=== PATIENT | male | born 1960 ===

== ENCOUNTER 2017-07-13 11:04 | Inpatient (IN) | payer OTHER ==
[2017-07-13 11:18] VITALS: BMI 26.7
--- NOTE | 2017-07-13 11:19 | ED PDOC ---
Arrival/HPI - General Chief Complaint: Altered Mental Status Time Seen by Provider: 07/13/17 11:16 Historian: EMS, Other (co-worker) - History of Present Illness Narrative History of Present Illness (Text): 07/13/17 11:19 Pt p/w + sudden onset of altered mental status as per co-worker; pt was at work around 7 and appeared to be at his baseline mental status; pt was noted to be complaining while in the bathroom around 8-9am of severe dizziness/ lightheadedness and general unwell feeling/malaise; pt became verbal aphasic ~ 9 -915am; co-worker contacted EMS/911 and pt was brought to ED around 1115am; pt is currently with severe speech impediment; severe weakness to right arm/leg; pt is not responding appropriately; pt is not at his baseline mental status NO fall/trauma is noted co-worker is at bedside pt is here for further eval pt's without other complaints. PMD: Dr Freeman + Diabetes/HTN/on asa daily Time/Duration: 1-3 hours Symptom Onset: Sudden Symptom Course: Worsening Severity Level: Severe Activities at Onset: Other (was at work) Context: Work Past Medical History - Provider Review Nursing Documentation Reviewed: Yes - Travel History Have you recently traveled outside [place] w/in the past 3 mons?: No - Past History Past History: No Previous - Infectious Disease Hx of Infectious Diseases: None - Tetanus Immunization Tetanus Immunization: Unknown Family/Social History - Physician Review Nursing Documentation Reviewed: Yes Family/Social History: Diabetes Smoking Status: Unknown If Ever Smoked Hx Alcohol Use: No (unknown) Hx Substance Use: No (unknown) Hx Substance Use Treatment: No (unknown) Allergies/Home Meds Allergies/Adverse Reactions: Allergies Unobtainable Allergy (Verified 07/13/17 11:14) Home Medications: Home Meds Medication Instructions Recorded Confirmed Aspirin [[place] Aspirin] 81 mg PO DAILY 07/13/17 07/13/17 Ca/D3/Mag Ox/Zinc/[place] Sewer/Jim/Bor 1 each PO DAILY 07/13/17 07/13/17 [Calcium 600+D3 Plus Caplet] Glipizide [Glipizide ER] 10 mg PO DAILY 07/13/17 07/13/17 Lisinopril/Hydrochlorothiazide 1 each PO DAILY 07/13/17 07/13/17 [Lisinopril-Hctz 20-12.5 mg Tab] Metformin HCl [Glumetza] 1,000 mg PO BID 07/13/17 07/13/17 Review of Systems - Review of Systems Systems not reviewed;Unavailable: Altered Mental Status (and language barrier) Constitutional: Normal Eyes: Other (unable to obtain) ENT: Normal Respiratory: Normal Cardiovascular: Normal Gastrointestinal: Normal Genitourinary Male: Normal Musculoskeletal: Normal Skin: Normal Neurological: Dizziness, Speech Changes, Facial Droop, Disequilibrium Endocrine: Normal Hemo/Lymphatic: Normal Psychiatric: Normal Physical Exam - Physical Exam Physical Exam Limitations: Altered Mental Status Vital Signs Reviewed: Yes Vital Signs Temp Pulse Resp BP Pulse Ox 07/13/17 13:25 98.7 F 87 16 141/86 97 07/13/17 12:19 75 194/120 H 07/13/17 11:45 83 194/120 H 07/13/17 11:32 78 20 194/120 H 96 07/13/17 11:31 98.6 F 75 16 197/117 H 96 Temperature: Afebrile Blood Pressure: Hypertensive Pulse: Regular Respiratory Rate: Normal Appearance: Positive for: Uncomfortable, Other (arousable to pain stimuli and at times to voice, GCS = 6, uncomfortable, NAD, resting in bed) Pain Distress: None Mental Status: Positive for: other (severely altered) - Systems Exam Head: Present: Atraumatic, Normocephalic Pupils: Present: PERRL, Other (no photophobia, sclera anicteric, slightly sluggish pupils) Extroacular Muscles: Present: EOMI. No: Gaze Palsy Conjunctiva: Present: Normal Ears: Present: Normal Mouth: Present: Other (moist oral mucosa, dentures, tongue is midline, no drooling/stridor) Pharnyx: Present: Normal Nose (External): Present: Atraumatic Nose (Internal): Present: Normal Inspection Neck: Present: Normal Range of Motion, Trachea Midline, Other (no step off, no gross deformities noted). No: Meningeal Signs, MIDLINE TENDERNESS Respiratory/Chest: Present: Clear to Auscultation, Good Air Exchange, Other ( CTA b/l, no w/r/r, no accessory muscle use noted, no tachypenia) Cardiovascular: Present: Regular Rate and Rhythm, Normal S1, S2. No: Murmurs Abdomen: Present: Normal Bowel Sounds, Other (well nourished male, no focal tenderness, no masses/rebound/guarding/rigidity, no gallagher's sign, no mcburney' s point tenderness) Back: Present: Normal Inspection. No: CVA Tenderness, Midline Tenderness Upper Extremity: Present: Normal Inspection, Normal ROM, Neurovascularly Intact , Other (+ rigth arm severe weakness, no strength noted, no purposeful movement noted) Lower Extremity: Present: Other (no movement/strength noted to right lower ext; no gross deformities, movement noted to left lower ext, strength 5/5 grossly intact, pulses +2/2 b/l) Neurological: Present: Other (GCS = 6-8; NIH stroke scale ~ 24-26; right facial droop, slurr speech) Skin: Present: Warm, Dry, Normal Color, Other (cap refill < 1sec, no ulcerations , no petechiae) Medical Decision Making ED Course and Treatment: 07/13/17 11:24 Impression: AMS, concern for stroke i have consider all the differential diagnosis regarding pt's chief medical complaints/clinical findings, including but are not limited to: AMS; concern for stroke A/P: AMS, concern for stroke - labs - iv - xray - ct - observe - supportive care 07/13/17 11:15 Code stroke was activated at 11:16 Dr Goins was contacted ~ 11:24, asked about the need for CTA, Dr Goins states no at the moment Awaiting CT head 07/13/17 11:35 Dr Goins evaluated patient and states due to pt's CT findings, pt is not a tPA candidate, recommend control BP and ? FFP due to pt's ASA; and to admit patient to ICU; would like CTA neck/head paging Intensivists 07/13/17 11:44 unable to reach family, will have 2 doctor signature, to consent for transfusion /FFB spoke to Dr Fry, who states Dr Freeman's patient will be seen/admitted by Dr Grace, will page Dr Grace 07/13/17 11:54 Case discussed with ICU attending supervisor epoxy fabrication Dr. Day, who is aware of and in agreement with ED treatment. Requests supervisor epoxy fabrication neurologist and vascular specialist Dr. Mariano for consult. Dr. Day is ambivalent towards ffp transfusion since the benefits and risks are the same, would like Platelet transfusion for now. 07/13/17 11:50 due to pt's worsening mental status, concern for airway protection will recommend emergent intubation to protect patient's airway pt is intubated ~ 12:15pm; i spoke to pt's son, Pratik Luevano on the phone who is coming to see patient 12:35pm - pt's spouse and Pratik Luevano (pt's son) are at bedside, made aware of pt's medical condition; agrees with admission family stated patient had a stroke some times ago in [place] but without any permanent/residual damages Dr Garcia spoke to neurosurg/dr Davis and he will see patient Dr Goins is with Dr Mariano, they are aware 1245 - I spoke to Dr Grace, made aware, agrees with ED mgt/txt/dx 07/13/17 1250 pt is currently stable vital signs indicates permissive HTN at ~ 170s sbp, pt is on cardene gtt as well as propofol for sedation pt's head is elevated ~ 30degrees pt is currently intubated, and appearing comfortable, not in distress family are at bedside repeate xray was performed pt is awaiting bed placement to the ICU and will obtain CTA head/neck on the way to the ICU Re-evaluation Time: 11:27 Reassessment Condition: Unchanged - Critical Care Critical Care Minutes: 45 minutes Critical Care Time: Excluding Proc Time Narrative Critical Care (Text): 07/13/17 12:38 critical care time: 45min, excluding procedure time, excluding time teaching residents/students/mid-level providers; including initial eval/diagnosis, diagnostic interpretation, re-eval, consultations, final disposition - Lab Interpretations Lab Results: 07/13/17 11:27 07/13/17 11:27 Lab Results 07/13/17 11:27: Sodium 138, Potassium 3.9, Chloride 98, Carbon Dioxide 27, Anion Gap 16, BUN 12, Creatinine 0.6 L, Est GFR ( Amer) > 60, Est GFR ( Non-Af Amer) > 60, Random Glucose 246 H, Calcium 10.3, Total Bilirubin 0.3, AST 25, ALT 33, Alkaline Phosphatase 91, Troponin I < 0.01, Total Protein 7.7, Albumin 4.4, Globulin 3.3, Albumin/Globulin Ratio 1.4, Triglycerides 160, Cholesterol 190, LDL Cholesterol Direct 106, HDL Cholesterol 49 07/13/17 11:27: PT 11.6, INR 1.01, APTT 26.3 07/13/17 11:27: WBC 6.8, RBC 5.27, Hgb 13.7 L, Hct 40.1 L, MCV 76.1 L, MCH 26.0 , MCHC 34.2, RDW 13.1, Plt Count 250, MPV 9.5, Gran % 58.1, Lymph % (Auto) 33.6 , [place] % (Auto) 6.7 H, Eos % (Auto) 1.3 L, Baso % (Auto) 0.3, Gran # 3.92, Lymph # (Auto) 2.3, [place] # (Auto) 0.5, Eos # (Auto) 0.1, Baso # (Auto) 0.02 07/13/17 11:09: POC Glucose (mg/dL) 218 H I have reviewed the lab results: Yes Interpretation: Abnormal lab values (elevated GLUC) - RAD Interpretation Narrative RAD Interpretations (Text): 07/13/17 14:03 HISTORY: Code Stroke COMPARISON: No prior. FINDINGS: LUNGS: There is linear atelectasis or scarring at the right lung base. PLEURA: No significant pleural effusion identified, no pneumothorax apparent. CARDIOVASCULAR: The heart is normal in size. There is mild aortic tortuosity OSSEOUS STRUCTURES: No significant abnormalities. VISUALIZED UPPER ABDOMEN: Normal. OTHER FINDINGS: None. IMPRESSION: No active disease. PROCEDURE: CT HEAD WITHOUT CONTRAST. HISTORY: code stroke COMPARISON: None available. TECHNIQUE: Axial computed tomography images were obtained through the head/brain without intravenous contrast. Radiation dose: Total exam DLP = 912.31 mGy-cm. This CT exam was performed using one or more of the following dose reduction techniques: Automated exposure control, adjustment of the mA and/or kV according to patient size, and/or use of iterative reconstruction technique. FINDINGS: HEMORRHAGE: There is an intraparenchymal hemorrhage identified at the left cerebral peduncle extending inferiorly into the left side of the ladan posteriorly. It measures 1.3 x 1.5 x 4.4 cm (transverse by anteroposterior by superoinferior dimensions), with a small, tubular component seen posterior to it at the midline upper ladan. There is no significant mass effect exerted at this time and trace local edema is seen at the inferior left thalamus/posterior limb internal capsule. The remainder the brain is unremarkable with good corticomedullary differentiation appreciated throughout the cerebrum and cerebellum. No cortical edema is appreciated with a small chronic lacune suggests at the left frontal subcortical white matter superiorly. There is no suspicious extra-axial fluid collection identified. BRAIN: Please see above. VENTRICLES: Unremarkable. No hydrocephalus. CALVARIUM: Unremarkable. PARANASAL SINUSES: Unremarkable as visualized. No significant inflammatory changes. MASTOID AIR CELLS: Unremarkable as visualized. No inflammatory changes. OTHER FINDINGS: None. IMPRESSION: Intraparenchymal hemorrhage appears acute subacute at the left cerebral peduncle extending into the inferior ladan posteriorly with trace local edema is seen at the left thalamus/ internal capsule posterior limb. No significant mass effect is encountered at this time. Remainder the examination is unremarkable. Follow-up cross-sectional brain imaging advised. Findings discussed with Dr. Bridges 07/13/2017 11:30 a.m.. PROCEDURE: CT Angiography of the Brain. HISTORY: code stroke, noted bleed COMPARISON: None available. TECHNIQUE: CT angiography of the intracranial and cervical arteries was performed. Coronal and sagittal maximum intensity projection reformatted images were generated. Contrast Dose: Radiation dose:Total exam DLP = 515.13 mGy-cm. This CT exam was performed using one or more of the following dose reduction techniques: Automated exposure control, adjustment of the mA and/or kV according to patient size, and/or use of iterative reconstruction technique. FINDINGS: INTERNAL CEREBRAL ARTERIES: Unremarkable. The skull base, petrous, cavernous and supraclinoid segments are bilaterally widely patent. ANTERIOR CEREBRAL ARTERIES: Unremarkable. A1 and A2 segments are widely patent. Smaller distal branches unremarkable, as visualized. MIDDLE CEREBRAL ARTERIES: Unremarkable. M1 and M2 segments are widely patent. Perisylvian branches grossly symmetric. POSTERIOR CIRCULATION: Basilar Artery: Unremarkable. Distal Vertebral Arteries: Unremarkable. Posterior Cerebral Arteries: Unremarkable. Posterior Inferior Cerebellar Arteries: Unremarkable. NECK CTA: Common Carotid arteries: The bilateral common carotid appear widely patent from their origins to their bifurcations with no significant stenosis appreciated. No evidence to suggest common carotid artery dissection. Internal Carotid arteries: No significant stenosis is appreciated throughout the cervical internal carotid artery segments bilaterally and there is no evidence of dissection either. The distal left ICA appears rather ectatic proximal to entry through the skullbase. External Carotid arteries: Appear unremarkable bilaterally. Vertebral arteries: The bilateral vertebral arteries appear normal in caliber from their origins to their junction with the basilar artery. No significant stenosis or definite pattern of dissection. ANEURYSM/ VASCULAR MALFORMATIONS: None. OTHER FINDINGS: Incidental fibrotic changes versus linear atelectasis left pulmonary apex. Endotracheal and nasogastric tubes are identified at the thoracic inlet in their respective tracheal and esophageal locations. Left-sided pontine and cerebral peduncle intraparenchymal hemorrhage again evident extending into the left thalamus/internal capsule. IMPRESSION: Unremarkable CT Angiography of the Brain and Neck, including at the level of the ladan and left cerebral peduncle. HISTORY: intubated/NGT COMPARISON: Portable chest 07/13/2017 FINDINGS: LUNGS: Patient is now intubated with an endotracheal tube identified terminating just over 6 cm from the wyatt. Nasogastric tube is identified placed with the side hole at the level of the esophagogastric junction. Advancement of the NG tube further into abdomen is advised so the the side hole clears the EG junction. Limited right infrahilar and medial basilar patchy atelectasis is favored over infiltrate at this time. PLEURA: No significant pleural effusion identified, no pneumothorax apparent. CARDIOVASCULAR: Normal. OSSEOUS STRUCTURES: No significant abnormalities. VISUALIZED UPPER ABDOMEN: Normal. OTHER FINDINGS: None. IMPRESSION: Interval intubation and nasogastric tube deployment as discussed above. Advancement of the NG tube further into the stomach is advised follow-up by confirmation radiography. Limited patchy atelectasis is favored over infiltrate at the right infrahilar and medial left basilar regions. Radiology Orders: 07/13/17 11:15 HEAD W/O (CODE STROKE) [CT] Stat 07/13/17 11:21 CHEST PORTABLE [RAD] Stat 07/13/17 11:33 CTA HEAD/NECK CODE STROKE [CT] Stat 07/14/17 06:00 CHEST PORTABLE [RAD] DAILY 07/15/17 06:00 CHEST PORTABLE [RAD] DAILY 07/16/17 06:00 CHEST PORTABLE [RAD] DAILY 07/17/17 06:00 CHEST PORTABLE [RAD] DAILY [employer] Operations Manager: Radiologist - EKG Interpretation EKG Interpretation (Text): 07/13/17 14:05 NSR at 75 bpm, normal axis, no ectopy, inverted T in leads III, poor R wave progression, no st changes, BORDERLINE EKG; no old ekg to compare with Interpreted by ED Physician: Yes Type: 12 lead EKG Comparison: No previous EKG avail. - Medication Orders Current Medication Orders: Sodium Chloride (Sodium Chloride 0.9%) 1,000 mls @ 100 mls/hr IV .Q10H RONNIE Last Admin: 07/13/17 12:21 Dose: 100 mls/hr eMAR Start Stop Document 07/13/17 12:21 SRE (Rec: 07/13/17 12:21 SRE [id number]) Intravenous Solution Start Date 07/13/17 Start Time 11:30 Nicardipine HCl (Cardene Iv Premix) 20 mg in 200 mls @ 50 mls/hr IV .Q4H PRN; Protocol; 5 MG/HR PRN Reason: TITRATE PER MD ORDER Last Admin: 07/13/17 11:45 Dose: 50 mls/hr eMAR Start Stop Document 07/13/17 11:45 SRE (Rec: 07/13/17 12:29 SRE [id number]) Intravenous Solution Start Date 07/13/17 Start Time 11:45 MAR Pulse and Blood Pressure Document 07/13/17 11:45 SRE (Rec: 07/13/17 12:29 SRE [id number]) Pulse Pulse Rate (60-90) 83 Blood Pressure Blood Pressure (100/60-150/90) 194/120 Propofol (Diprivan) 500 mg in 50 mls @ 2.394 mls/hr IV .[id number] PRN; Protocol; 5 MCG/KG/MIN PRN Reason: TITRATE PER MD ORDER Insulin Human Regular (Humulin R High) 0 units SC ACHS RONNIE PRN Reason: Protocol Pantoprazole Sodium (Protonix Inj) 40 mg IVP DAILY RONNIE Discontinued Medications Etomidate (Amidate) 20 mg IV STAT STA Stop: 07/13/17 12:22 Sodium Chloride (Hypertonic Saline 3%) 500 mls @ 500 mls/hr IV .Q1H RONNIE Stop: 07/13/17 12:38 Last Admin: 07/13/17 13:07 Dose: 500 mls/hr eMAR Start Stop Document 07/13/17 13:07 SRE (Rec: 07/13/17 13:08 SRE [id number]) Intravenous Solution Start Date 07/13/17 Start Time 13:05 End Date 07/13/17 End time 14:05 Total Infusion Time 60 Labetalol HCl (Trandate) 20 mg IV STAT STA Stop: 07/13/17 11:30 Last Admin: 07/13/17 12:19 Dose: 20 mg eMAR Start Stop Document 07/13/17 12:19 SRE (Rec: 07/13/17 12:20 SRE [id number]) Intravenous Solution Start Date 07/13/17 Start Time 11:30 End Date 07/13/17 End time 11:31 Total Infusion Time 1 [facility] Pulse and Blood Pressure Document 07/13/17 12:19 SRE (Rec: 07/13/17 12:20 SRE [id number]) Pulse Pulse Rate (60-90) 75 Blood Pressure Blood Pressure (100/60-150/90) 194/120 Midazolam HCl (Versed Inj) 2 mg IVP STAT STA Stop: 07/13/17 12:25 Propofol (Diprivan) 50 mg IVP ONCE ONE Stop: 07/13/17 12:25 Last Admin: 07/13/17 12:25 Dose: 50 mg IVP Administration Document 07/13/17 12:25 SRE (Rec: 07/13/17 13:21 SRE [id number]) Charges for Administration # of IVP Administrations 1 Succinylcholine Chloride (Quelicin) 80 mg IV STAT STA Stop: 07/13/17 12:23 - Procedure PROCEDURE NOTE (Text): PROCEDURE: INTUBATION Performed by the emergency provider Time: 12:10 Timeout: A timeout to verify the correct patient, procedure, and site was performed. Indication: altered mental status/poor airway control Pre-oxygenation: [id number]; pre-intubation saturation ~ 100% Medications: See MAR for details. (Etomadate/succhycholine) ETT Size: 8.0" attempt x 2, first attempt with MAC 4 unable to pass the tube, noted < 10 sec of desaturation as switch over to Glidescope is performed, was able to secure tube and visualize passage of the ETT thru the vocal cords, + condensation to the ETT noted, + Capnometer changes noted. Confirmation: Cords directly visualized as tube passed, good bilateral breath sounds, positive CO2 detector color change, tube fogging, adequate chest rise, improving pulse oximetry reading, improved skin color, and absence of gastric sounds. ETT Secured: The cuff was inflated and the tube was secured appropriately at a distance of 22-23cm at the lip. ETT is secured Post-Procedure: There were no immediate complications. CXR Confirmation: Yes 07/13/17 12:15 NGT placement performed by the Emergency provider NGT placement is performed, tube is placed orally, obtained gastric content, no bleeding/complications noted; pt tolerated the procedure well; will secure the NGT NIHSS Stroke Scale 3 - Date/Time Evaluation Performed Date Performed: 07/13/17 Time Performed: 11:15 When Was NIHSS Performed: Code Stroke - How Severe is the Stroke Level of Consciousness: 1=Drowsy LOC to Questions: 2=Neither correct LOC to commands: 2=Neither correct Best Gaze: 1=Partial gaze palsy Visual: 0=No visual loss Facial: 2=Partial (lower face paralysis) Motor Arm - Left: 1=Drift noted before 10 sec Motor Arm - Right: 4=No movement Motor Leg - Left: 1=Drift before 5 sec Motor Leg - Right: 4=No movement Limb Ataxia: 2=Present both Sensory: 1=Mild to moderate loss Best Language: 2=Severe aphasia Dysarthia: 2=Severe, near unintelligible or worse Extinction & Inattention (Neglect): 1=Partial neglect (mild carol-attention) Score: 26 Disposition/Present on Arrival - Present on Arrival Any Indicators Present on Arrival: No History of DVT/PE: No History of Uncontrolled Diabetes: Yes Urinary Catheter: No History of Decub. Ulcer: No History Surgical Site Infection Following: None - Disposition Have Diagnosis and Disposition been Completed?: Yes Diagnosis: Intracranial bleed, Hypertensive emergency, CVA (cerebrovascular accident due to intracerebral hemorrhage), Uncontrolled diabetes mellitus Disposition: HOSPITALIZED Disposition Time: 12:05 Patient Plan: ICU Patient Problems: Current Active Problems Problem Status Onset CVA (cerebrovascular accident due to intracerebral hemorrhage) Acute Hypertensive emergency Acute Intracranial bleed Acute Uncontrolled diabetes mellitus Acute Condition: GUARDED
[2017-07-13] MEDS ORDERED: Labetalol 5 mg/ml Inj 20ML IV STA (11:29)
[2017-07-13] MEDS ORDERED: Sodium Chloride 0.9% 1,000 ML IV SCH (11:30)
[2017-07-13 11:35] LABS: BASO # 0.02 K/mm3 (0.0-2.0); BASO % 0.3 % (0.0-3.0); EOS # 0.1 (0.0-0.7); EOS % 1.3 % (1.5-5.0); GRAN # 3.92 (1.4-6.5); GRAN % 58.1 % (50.0-68.0); HEMOGLOBIN 13.7 g/dL (14.0-18.0); LYMPH # 2.3 (1.2-3.4); LYMPH % 33.6 % (22.0-35.0); MEAN CELL VOLUME 76.1 fl (80.0-105.0); MEAN CORPUSCULAR HGB CONC 34.2 g/dl (31.0-37.0); MEAN PLATELET VOLUME 9.5 fl (7.0-11.0); MONO # 0.5 (0.1-0.6); MONO % 6.7 % (1.0-6.0); RBC 5.27 10^6/uL (3.5-6.1); RED CELL DISTRIBUTION WIDTH 13.1 % (11.5-14.5); WHITE BLOOD COUNT 6.8 10^3/ul (4.5-11.0)
--- NOTE | 2017-07-13 11:38 | CT ---
PROCEDURE: CT HEAD WITHOUT CONTRAST. HISTORY: code stroke COMPARISON: None available. TECHNIQUE: Axial computed tomography images were obtained through the head/brain without intravenous contrast. Radiation dose: Total exam DLP = 912.31 mGy-cm. This CT exam was performed using one or more of the following dose reduction techniques: Automated exposure control, adjustment of the mA and/or kV according to patient size, and/or use of iterative reconstruction technique. FINDINGS: HEMORRHAGE: There is an intraparenchymal hemorrhage identified at the left cerebral peduncle extending inferiorly into the left side of the ladan posteriorly. It measures 1.3 x 1.5 x 4.4 cm (transverse by anteroposterior by superoinferior dimensions), with a small, tubular component seen posterior to it at the midline upper ladan. There is no significant mass effect exerted at this time and trace local edema is seen at the inferior left thalamus/posterior limb internal capsule. The remainder the brain is unremarkable with good corticomedullary differentiation appreciated throughout the cerebrum and cerebellum. No cortical edema is appreciated with a small chronic lacune suggests at the left frontal subcortical white matter superiorly. There is no suspicious extra-axial fluid collection identified. BRAIN: Please see above. VENTRICLES: Unremarkable. No hydrocephalus. CALVARIUM: Unremarkable. PARANASAL SINUSES: Unremarkable as visualized. No significant inflammatory changes. MASTOID AIR CELLS: Unremarkable as visualized. No inflammatory changes. OTHER FINDINGS: None. IMPRESSION: Intraparenchymal hemorrhage appears acute subacute at the left cerebral peduncle extending into the inferior ladan posteriorly with trace local edema is seen at the left thalamus/ internal capsule posterior limb. No significant mass effect is encountered at this time. Remainder the examination is unremarkable. Follow-up cross-sectional brain imaging advised. Findings discussed with Dr. Bridges 07/13/2017 11:30 a.m..
[2017-07-13] MEDS ORDERED: Nicardipine 20 MG/200 ML 20 MG/200 ML BAG IV PRN (11:42)
[2017-07-13 11:43] LABS: ALB/GLOB RATIO 1.4 (1.1-1.8); ALBUMIN 4.4 g/dL (3.0-4.8); ALT/SGPT 33 U/L (7-56); AST/SGOT 25 U/L (17-59); BLOOD UREA NITROGEN 12 mg/dL (7-21); CALCIUM 10.3 mg/dL (8.4-10.5); GFR AFRICAN-AMERICAN > 60; GFR NON-AFRICAN AMERICAN > 60; HDL CHOLESTEROL 49 mg/dL (29-60); INR 1.01 (0.93-1.08); PARTIAL THROMBOPLASTIN TIME 26.3 Seconds (25.1-36.5); PROTHROMBIN TIME 11.6 SECONDS (9.4-12.5)
[2017-07-13 11:54] LABS: LDL CHOLESTEROL 106 mg/dL (0-129)
[2017-07-13 11:57] LABS: TROPONIN I < 0.01 ng/mL
[2017-07-13] MEDS ORDERED: Etomidate 20 mg/10ml Inj IV ONE (11:58)
[2017-07-13] MEDS ORDERED: Succinylcholine 200 mg/10 ml Inj IV ONE (12:04)
[2017-07-13] MEDS ORDERED: Propofol 10 mg/ml 500 MG/50 ML VIAL IV PRN (12:05)
[2017-07-13] MEDS ORDERED: Midazolam 2 MG/2 ML VIAL ONE (12:10)
[2017-07-13] MEDS ORDERED: Propofol 10 mg/ml 1,000 MG/100 ML VIAL ONE ×2 (12:13→18:15)
--- NOTE | 2017-07-13 12:20 | RAD ---
HISTORY: Code Stroke COMPARISON: No prior. FINDINGS: LUNGS: There is linear atelectasis or scarring at the right lung base. PLEURA: No significant pleural effusion identified, no pneumothorax apparent. CARDIOVASCULAR: The heart is normal in size. There is mild aortic tortuosity OSSEOUS STRUCTURES: No significant abnormalities. VISUALIZED UPPER ABDOMEN: Normal. OTHER FINDINGS: None. IMPRESSION: No active disease.
[2017-07-13] MEDS ORDERED: Etomidate 20 mg/10ml Inj IV STA (12:21)
[2017-07-13] MEDS ORDERED: Succinylcholine 200 mg/10 ml Inj IV STA (12:22)
[2017-07-13] MEDS ORDERED: Midazolam 2 MG/2 ML VIAL IVP STA (12:24)
[2017-07-13] MEDS ORDERED: Propofol 10 mg/ml Inj (20 ML) IVP ONE (12:24)
[2017-07-13] MEDS ORDERED: Sodium Chloride 3% 500 ML IV SCH (12:30)
--- NOTE | 2017-07-13 13:05 | CP.PCM.CON ---
History of Present Illness - History of Present Illness History of Present Illness: 57 yr old male, right handed who was last seen well at about 8 am this morning by coworker. He was complaining of headache at this time, and at 815 he collapsed, became aphasic, and fell to the ground in front of coworker with no seizure. This was at 915, EMS was called and patient was brought in as code stroke at 11:15 am. I was called and arrived in the ER at 11:20, but patient was in CT scan. When he returned, ct scan showed that he had a left thalamic and pontine bleed with mass effect, and initial bp of 2220/100. He was not a TPA candidate due to intracerebral hemorrhage and was admitted to the ICU, with cardene drip started. PMH/PSH: DM, HTN FH/SH: at this time, complete social and family history is not available and will be updated over the day. All: as far as we know, there are no allergies. on exam: Patient is obtunded, with left arm moving slightly to sternal rub, Pupils 3mm- 2mm sluggishly reacting to light. +dolls eyes, no corneals are present, +gag. No facial asymmetry. does not follow commands, moves left upper and lower limb semipurposefully, but right arm is plegic. +2 dtr ul and ll bl. Toes downgoing no clonus. gait not tested. no verbal output noted. Past Patient History - Infectious Disease Hx of Infectious Diseases: None - Tetanus Immunizations Tetanus Immunization: Unknown - Past Social History Smoking Status: Unknown If Ever Smoked - CARDIAC Hx Hypertension: Yes - ENDOCRINE/METABOLIC Hx Endocrine Disorders: Yes Hx Diabetes Mellitus Type 2: Yes - PSYCHIATRIC Hx Substance Use: No (unknown) - SURGICAL HISTORY Hx Surgeries: No Meds Allergies/Adverse Reactions: Allergies Allergy/AdvReac Type Severity Reaction Status Date / Time Unobtainable Allergy Verified 07/13/17 11:14 - Medications Medications: Current Medications Sodium Chloride (Sodium Chloride 0.9%) 1,000 mls @ 100 mls/hr IV .Q10H RONNIE Last Admin: 07/13/17 12:21 Dose: 100 mls/hr Nicardipine HCl (Cardene Iv Premix) 20 mg in 200 mls @ 50 mls/hr IV .Q4H PRN; Protocol; 5 MG/HR PRN Reason: TITRATE PER MD ORDER Last Admin: 07/13/17 11:45 Dose: 50 mls/hr Propofol (Diprivan) 500 mg in 50 mls @ 2.394 mls/hr IV .[id number] PRN; Protocol; 5 MCG/KG/MIN PRN Reason: TITRATE PER MD ORDER Sodium Chloride (Hypertonic Saline 3%) 500 mls @ 500 mls/hr IV .Q1H RONNIE Stop: 07/13/17 12:38 Insulin Human Regular (Humulin R High) 0 units SC ACHS RONNIE PRN Reason: Protocol Pantoprazole Sodium (Protonix Inj) 40 mg IVP DAILY RONNIE Results - Vital Signs Recent Vital Signs: Last Vital Signs Temp Pulse 75 07/13/17 12:19 Resp 20 07/13/17 11:32 BP 194/120 H 07/13/17 12:19 Pulse Ox 96 07/13/17 11:32 - Labs Result Diagrams: 07/13/17 11:27 07/13/17 11:27 - Imaging and Cardiology CT scan - head Status: Image reviewed by me, Report reviewed by me (CT head: intraparenchymal hemorrhage acute/subacute left cerebral peduncle extending to the inferior ladan , and the left thalamic region. ) Assessment & Plan - Assessment and Plan (Free Text) Assessment: 57 yr old male with acute onset hypertensive bleed that most likely orginated in the left thalamus extending in to the ladan, and is now in the ICU, intubated. At this point, there is most likely little surgical intervention, and there is no hydrocephalus on ct scan head. We will monitor him with serial ct scans and hold off the ffps as it may not improve outcome. Plan: 1. Neurosurgical consult. 2. Control blood pressure and keep within normal limits 3. Repeat Ct scan head 4. CTA to investigate possibility of aneurysm 5. Start keppra IV 1000 mg now and 500 mg IV bid Thank you for this interesting consult. We will follow Dr. Buster MD, DPN
--- NOTE | 2017-07-13 13:09 | RAD ---
HISTORY: intubated/NGT COMPARISON: Portable chest 07/13/2017 FINDINGS: LUNGS: Patient is now intubated with an endotracheal tube identified terminating just over 6 cm from the wyatt. Nasogastric tube is identified placed with the side hole at the level of the esophagogastric junction. Advancement of the NG tube further into abdomen is advised so the the side hole clears the EG junction. Limited right infrahilar and medial basilar patchy atelectasis is favored over infiltrate at this time. PLEURA: No significant pleural effusion identified, no pneumothorax apparent. CARDIOVASCULAR: Normal. OSSEOUS STRUCTURES: No significant abnormalities. VISUALIZED UPPER ABDOMEN: Normal. OTHER FINDINGS: None. IMPRESSION: Interval intubation and nasogastric tube deployment as discussed above. Advancement of the NG tube further into the stomach is advised follow-up by confirmation radiography. Limited patchy atelectasis is favored over infiltrate at the right infrahilar and medial left basilar regions.
[2017-07-13 13:20] LABS: ARTERIAL BLOOD GAS HCO3 23.2 mmol/L (21-28); ARTERIAL BLOOD GAS HEMOGLOBIN 12.2 g/dL (11.7-17.4); ARTERIAL BLOOD GAS O2 CAPACITY 17.1 mL/dl (16-24); ARTERIAL BLOOD GAS O2 CONTENT 16.8 ML/dl (15-23); ARTERIAL BLOOD GAS O2 SAT 98.1 % (95-98); ARTERIAL BLOOD GAS PCO2 42 mm/Hg (35-45); ARTERIAL BLOOD GAS PH 7.35 (7.35-7.45); ARTERIAL BLOOD GAS TCO2 24.5 mmol.L (22-28)
--- NOTE | 2017-07-13 13:55 | CT ---
PROCEDURE: CT Angiography of the Brain. HISTORY: code stroke, noted bleed COMPARISON: None available. TECHNIQUE: CT angiography of the intracranial and cervical arteries was performed. Coronal and sagittal maximum intensity projection reformatted images were generated. Contrast Dose: Radiation dose:Total exam DLP = 515.13 mGy-cm. This CT exam was performed using one or more of the following dose reduction techniques: Automated exposure control, adjustment of the mA and/or kV according to patient size, and/or use of iterative reconstruction technique. FINDINGS: INTERNAL CEREBRAL ARTERIES: Unremarkable. The skull base, petrous, cavernous and supraclinoid segments are bilaterally widely patent. ANTERIOR CEREBRAL ARTERIES: Unremarkable. A1 and A2 segments are widely patent. Smaller distal branches unremarkable, as visualized. MIDDLE CEREBRAL ARTERIES: Unremarkable. M1 and M2 segments are widely patent. Perisylvian branches grossly symmetric. POSTERIOR CIRCULATION: Basilar Artery: Unremarkable. Distal Vertebral Arteries: Unremarkable. Posterior Cerebral Arteries: Unremarkable. Posterior Inferior Cerebellar Arteries: Unremarkable. NECK CTA: Common Carotid arteries: The bilateral common carotid appear widely patent from their origins to their bifurcations with no significant stenosis appreciated. No evidence to suggest common carotid artery dissection. Internal Carotid arteries: No significant stenosis is appreciated throughout the cervical internal carotid artery segments bilaterally and there is no evidence of dissection either. The distal left ICA appears rather ectatic proximal to entry through the skullbase. External Carotid arteries: Appear unremarkable bilaterally. Vertebral arteries: The bilateral vertebral arteries appear normal in caliber from their origins to their junction with the basilar artery. No significant stenosis or definite pattern of dissection. ANEURYSM/ VASCULAR MALFORMATIONS: None. OTHER FINDINGS: Incidental fibrotic changes versus linear atelectasis left pulmonary apex. Endotracheal and nasogastric tubes are identified at the thoracic inlet in their respective tracheal and esophageal locations. Left-sided pontine and cerebral peduncle intraparenchymal hemorrhage again evident extending into the left thalamus/internal capsule. IMPRESSION: Unremarkable CT Angiography of the Brain and Neck, including at the level of the ladan and left cerebral peduncle.
[2017-07-13 15:43] LABS: ARTERIAL BLOOD GAS HCO3 26.5 mmol/L (21-28); ARTERIAL BLOOD GAS HEMOGLOBIN 12.7 g/dL (11.7-17.4); ARTERIAL BLOOD GAS O2 CAPACITY 17.7 mL/dl (16-24); ARTERIAL BLOOD GAS O2 CONTENT 17.4 ML/dl (15-23); ARTERIAL BLOOD GAS O2 SAT 98.1 % (95-98); ARTERIAL BLOOD GAS PCO2 40 mm/Hg (35-45); ARTERIAL BLOOD GAS PH 7.43 (7.35-7.45); ARTERIAL BLOOD GAS TCO2 27.7 mmol.L (22-28)
[2017-07-13 15:48] VITALS: O2SAT 100
--- NOTE | 2017-07-13 16:01 | CP.PCM.PN ---
Subjective - Date & Time of Evaluation Date of Evaluation: 07/13/17 Time of Evaluation: 16:00 - Subjective Subjective: called by Dr Granado to discussed case Pontine hemmorhage Not surgical case Tx as per neurology Objective - Vital Signs/Intake and Output Vital Signs (last 24 hours): Temp Pulse Resp BP Pulse Ox 98.7 F 85 20 153/87 H 100 07/13/17 13:25 07/13/17 15:45 07/13/17 15:45 07/13/17 15:45 07/13/17 15:45 - Medications Medications: Current Medications Sodium Chloride (Sodium Chloride 0.9%) 1,000 mls @ 100 mls/hr IV .Q10H RONNIE Last Admin: 07/13/17 12:21 Dose: 100 mls/hr Nicardipine HCl (Cardene Iv Premix) 20 mg in 200 mls @ 50 mls/hr IV .Q4H PRN; Protocol; 5 MG/HR PRN Reason: TITRATE PER MD ORDER Last Admin: 07/13/17 11:45 Dose: 50 mls/hr Propofol (Diprivan) 500 mg in 50 mls @ 2.394 mls/hr IV .[id number] PRN; Protocol; 5 MCG/KG/MIN PRN Reason: TITRATE PER MD ORDER Last Admin: 07/13/17 14:01 Dose: 30 mcg/kg/min, 14.362 mls/hr Insulin Human Regular (Humulin R High) 0 units SC ACHS RONNIE PRN Reason: Protocol Pantoprazole Sodium (Protonix Inj) 40 mg IVP DAILY RONNIE - Labs Labs: PT 11.6 SECONDS (9.4-12.5) 07/13/17 11:27 INR 1.01 (0.93-1.08) 07/13/17 11:27 APTT 26.3 Seconds (25.1-36.5) 07/13/17 11:27
[2017-07-13] MEDS ORDERED: Insulin Reg-HIGH-Coverage SC SCH ×2 (16:15→16:30)
[2017-07-13 16:41] VITALS: RESP 21
[2017-07-13 17:00] LABS: BLOOD UREA NITROGEN 11 mg/dL (7-21); CALCIUM 9.5 mg/dL (8.4-10.5); GFR AFRICAN-AMERICAN > 60; GFR NON-AFRICAN AMERICAN > 60
[2017-07-13 18:19] VITALS: BP 139/82; TEMP 98.1
[2017-07-13] MEDS ORDERED: Pneumococcal 23-Valent Vaccine IM ONE (18:20)
--- NOTE | 2017-07-13 18:55 | CARD ---
APPROVED REPORT EXAM: Two-dimensional and M-mode echocardiogram with Doppler and color Doppler. INDICATION NEUROGENIC SHOCK 2D DIMENSIONS Left Atrium (2D)3.8 (1.6-4.0cm)IVSd1.4 (0.7-1.1cm) LVDd3.9 (3.9-5.9cm)PWd1.4 (0.7-1.1cm) LVDs2.7 (2.5-4.0cm)FS (%) 30.4 % LVEF (%)58.5 (>50%) M-Mode DIMENSIONS Aortic Root3.50 (2.2-3.7cm)Aortic Cusp Exc.1.90 (1.5-2.0cm) Aortic Valve AoV Peak Ksivbdic533.0cm/sAoV VTI36.5cmAO Peak GR.12mmHg LVOT Peak Lsqqriip269.0cm/sLVOT VTI33.90cmAO Mean GR.7mmHg Mitral Valve MV E Jhwhtoig79.6cm/sMV A Taquaydy674.0cm/sE/A ratio0.6 TDI Lateral E' Peak V10.40cm/sMedial E' Peak V5.07cm/sE/Lateral E'6.3 E/Medial E'12.9 Pulmonary Valve PV Peak Kciuzcmi55.3cm/sPV Peak Grad.3mmHg Tricuspid Valve TR Peak Qiludeid803sw/sRAP WHDIXKIH90xwShUE Peak Gr.23mmHg [id number] LEFT VENTRICLE The left ventricle is normal size. There is mild concentric left ventricular hypertrophy. The left ventricular function is normal. The left ventricular ejection fraction is within the normal range. There is normal LV segmental wall motion. Transmitral Doppler flow pattern is Grade I-abnormal relaxation pattern. RIGHT VENTRICLE The right ventricle is normal size. There is normal right ventricular wall thickness. The right ventricular systolic function is normal. ATRIA The left atrium size is normal. The right atrium size is normal. AORTIC VALVE There is mild subvalvular aortic stenosis. MITRAL VALVE The mitral valve is normal in structure. Mitral regurgitation is mild. TRICUSPID VALVE There is mild pulmonary hypertension. <Conclusion> The left ventricle is normal size. There is mild concentric left ventricular hypertrophy. The left ventricular function is normal. The left ventricular ejection fraction is within the normal range. There is normal LV segmental wall motion. Transmitral Doppler flow pattern is Grade I-abnormal relaxation pattern. There is mild subvalvular aortic stenosis. There is mild pulmonary hypertension.
--- NOTE | 2017-07-13 19:17 | CON ---
DATE: 07/13/2017 NEUROLOGY CONSULTATION REASON FOR CONSULTATION: Request for a second opinion by Dr. Grace and family. CHIEF COMPLAINT: Status post left thalamic and pontine bleed. HISTORY OF PRESENT ILLNESS: This is a 57-year-old man, right handed, with history of type 2 diabetes mellitus, uncontrolled with an A1c of 10.4, who was brought in by his coworker because noticed around 8:00 a.m. that he has complained of a headache. When he collapsed, became aphasic, and fell to the ground, was brought by EMS and had initial CAT scan, which showed a left intraparenchymal hemorrhage on the left cerebral peduncle extending inferiorly into the left side of the ladan posteriorly, measuring 1.3 x 1.5 x 4.4 cm with a small tubular component seen posterior to it and to the mid upper ladan. There is no significant mass effect extending at that time, but there is also some left thalamic bleed on left posterior internal capsule, extension of the bleed with some mild soiling. Neurosurgery evaluated the patient and mentioned no neurosurgical intervention at this time, as the second opinion consult by Dr. Grace as well as the family for more aggressive care. I agree with initial Neurology evaluation with blood pressure control. Currently, the patient is moving spontaneously the left side, but minimal movement of the right. PAST MEDICAL HISTORY: Type 2 diabetes mellitus and hypertension. SOCIAL HISTORY: Unaware at this time. ALLERGIES: NO KNOWN DRUG ALLERGIES FAR THEY KNOW ACCORDING TO THE FAMILY MEMBERS. REVIEW OF SYSTEMS: Difficult to obtain due to the patient's altered mental status. MEDICATIONS: Reviewed by nurse's reconciliation sheet. FAMILY HISTORY: Noncontributory. PHYSICAL EXAMINATION: GENERAL: The patient is intubated, on propofol, obtunded. VITAL SIGNS: Afebrile, pulse rate of 84, blood pressure 158/93, respiratory rate 21 via mechanical ventilation. HEENT: Positive doll's eyes. No corneal was present. Pupils are sluggish, 2 to 3 mm, reactive to light. NECK: Supple. No JVD. No adenopathy noted. LUNGS: Clear to auscultation. No adventitious sounds. HEART: S1 and S2. Normal rate and rhythm. No murmurs, rubs, or gallops. ABDOMEN: Soft, nontender, and nondistended. Bowel sounds present. EXTREMITIES: No clubbing, no cyanosis. Peripheral pulses 2+ felt bilaterally. NEUROLOGIC: The patient is obtunded with moving the left arm slightly to noxious stimulus. Speech is difficult to asses at this point. The patient is intubated, on propofol. Pupils are 2 to 3 mm, sluggish, reactive to light. Doll's eyes are present. Minimal corneals bilaterally. Positive gag seen. No facial asymmetry. Does not follow commands. Motor: Moves the left upper and lower extremities spontaneously, but right arm is hemiplegic. DTRs are 2+ throughout in the upper limbs bilaterally as well as bilateral lower extremities. Toes are upgoing bilaterally. Sensory: Withdraws to localized noxious stimulus on the left as well as to sternal rub, but no movement of the right. Coordination and gait are deferred for now. LABORATORY DATA: Sodium is 136, potassium 3.6, chloride 99, carbon dioxide 27, BUN of 11, creatinine of 0.6, random glucose 247. Hemoglobin A1c is 10.4, indicating poorly controlled diabetes. ASSESSMENT AND PLAN: This is a 57-year-old man with history of type 2 diabetes mellitus, uncontrolled; history of hypertension; was at work with a headache and had collapsed in front of his coworker after becoming aphasic. His blood pressure in the ER was initially 220/100, which had been brought down. He was found to have on CAT scan of the head, an intraparenchymal hemorrhage, acute/subacute at the left cerebral peduncle extending into the ladan posteriorly with trace local edema seen in the left thalamus, internal capsule, but no major mass effect. This is clearly a hypertensive bleed. Neurosurgery mentioned no neurosurgical intervention at this time. Family is requesting for more aggressive management and tertiary care placement. Therefore, a call was placed out to overlook by the primary team. At this time, we recommend: 1. Keep systolic blood pressures between 120s to 130s systolic and diastolic 70s to 80s. 2. CT angio of the neck was unremarkable for any aneurysms and monitor electrolytes and correct accordingly. 3. Keep blood sugars between 140 to 180 given that he has elevated A1c of 10.4 indicating poorly controlled diabetes. 4. Continue with ICU management. 5. Continue with Keppra 500 mg IV every 12 hours for seizure prophylaxis. 6. Continue with current present ICU management. Case was discussed with family and repeat CAT scan of the head tomorrow. Once again, thank you for this consult. Bob Dick MD
--- NOTE | 2017-07-13 19:17 | CARD ---
APPROVED REPORT EKG Measurement Heart [id number] <Conclusion> Normal sinus rhythm Normal ECG
[2017-07-13 20:06] VITALS: PULSE 87
--- NOTE | 2017-07-13 23:17 | DS ---
DISCHARGE DIAGNOSES: 1. Intracranial hemorrhage. 2. Left cerebral bleed extending into ladan. 3. Altered mental status. 4. Uncontrolled hypertension. 5. Uncontrolled diabetes mellitus. HOSPITAL COURSE: Patient was admitted to the hospital with intracranial bleed. He was evaluated by Neurology, Dr. Goins. Second opinion by neurologist, Dr. Dick, obtained. Neuro surgery evaluation done by Dr. Davis. Dr. Dick suggested transfer to tertiary care neurology center for further management and treatment. He will be transferred to [facility]. PHYSICAL EXAMINATION: GENERAL: Intubated and sedated. VITAL SIGNS: Blood pressure 140/70, respiratory rate 18 per minute. CHEST: Air entry present and equal bilaterally. No bilaterally conducted breath sounds. CARDIOVASCULAR: S1 and S2 normal. No murmur, no gallop. ABDOMEN: Soft, nontender. No hepatosplenomegaly. EXTREMITIES: No edema. CONDITION ON DISCHARGE: Critical. DISPOSITION: Transfer to [facility] Neuro ICU. TIME OF DISCHARGE: 07/13/2017, hours 1830. Time spent in preparing discharge and coordinating care 50 minutes. Amber Grace MD ELIEZER
--- NOTE | 2017-07-14 00:34 | HP ---
DATE OF EXAM: 07/13/2017 HISTORY OF PRESENT ILLNESS: Mr. Luevano is a 57-year-old male brought to ED by a coworker. He had an episode of dizziness and fell in the bathroom at work at around 09:00 a.m. in the morning. He arrived in the ED at 11:15 a.m. Stroke code was called. He did have aphasia, weakness in the right arm. He was obtunded, not responding. Stroke code was called, evaluated by Neurology, Dr. Goins. CAT scan of the head showed bleed in left cerebral peduncle extending in to ladan area. Blood pressure was elevated at 197/[address] angio of head and neck was done, which was normal. No aneurysm was identified. He was intubated, sedated, currently in ICU. PAST MEDICAL HISTORY: None. PAST SURGICAL HISTORY: None. PERSONAL HISTORY: Unknown smoking history. No history of alcohol abuse. ALLERGIES: UNKNOWN. HOME MEDICATIONS: Aspirin 81 mg daily, glipizide 10 mg daily, lisinopril/hydrochlorothiazide one tablet daily, metformin 1000 mg p.o. b.i.d., calcium and Vitamin D. REVIEW OF SYSTEMS: Altered mental status, could not be obtained, history of dizziness, aphasia, disequilibrium, history of fall, given by coworker. PHYSICAL EXAMINATION: GENERAL: Currently sedated, intubated, hypertensive. VITAL SIGNS: Blood pressure 140/86, temperature 98.7, heart rate 87 per minute, respiratory rate 15 per minute. HEENT: Pupils equally reacting to light. NECK: Supple. No lymphadenopathy. CHEST: Intubated. Air entry present, equal bilateral. CARDIOVASCULAR: Tachycardia, heart rate of 90 per minute. ABDOMEN: Soft, nontender. No hepatosplenomegaly. EXTREMITIES: No edema. SKIN: Warm, normal color. SPINE: Normal. LABORATORY DATA: White count 6.8, hemoglobin 13.7, hematocrit 40.1, platelet 250. Sodium 138, potassium 3.9, BUN 12, creatinine 0.6, glucose 246. Imaging as per HPI. ASSESSMENT AND PLAN: Intracranial hemorrhage likely due to uncontrolled hypertension in left cerebral hemisphere extending into ladan. Stroke code is called. Dr. Goins from Neurology evaluated. Dr. Dick, Neurology consult obtained for second opinion. Dr. Dick evaluated the patient, he is of opinion that he should be transferred to Neurology Intensive Care Unit for further care and management, he might need surgical intervention based on the clinical course. Coags are normal, no indication of fresh frozen plasma. Discussed with the family at bedside regarding transfer to [facility], they agree with the transfer. 2. Uncontrolled hypertension. 3. Uncontrolled diabetes mellitus. Further management will be done at tertiary care center. Discussed with ICU staff nurse. Discussed with ICU resident, Dr. Montejo. Appreciate Neurology input by Dr. Dick and discussed with Dr. Day regarding the transfer to [facility]. Amber Grace MD MTDPratik
--- NOTE | 2017-07-14 01:02 | CON ---
DATE: 07/13/2017 HISTORY OF PRESENT ILLNESS: This is a 57-year-old gentleman with a history of diabetes and hypertension, who presented with sudden onset of headache, aphasia and loss of consciousness, which happened around 8:00 in the morning. Around 08:15, the patient collapsed, fell to the ground. No repetitive or stereotypical movements were noted that otherwise would suggest seizures. EMS arrived shortly thereafter and code stroke at [facility] ER was pronounced at around 11:15 a.m. Subsequent CAT scan of the head revealed intraparenchymal/infratentorial bleeds in the left thalamic and pontine area with some mass effect. Initial blood pressure was about 200 systolic. No fever, no chills, no sweats. No nausea, no vomiting, no diarrhea, no constipation. Gathering of HPI, PMH and ROS information is limited due to the patient being currently intubated. FAMILY HISTORY: Noncontributory. ALLERGIES: NKDA. SOCIAL HISTORY: Limited, as the patient is intubated. PHYSICAL EXAMINATION: VITAL SIGNS: Temperature 98.7, heart rate 87, blood pressure 141/86, respiratory rate 16, oxygen saturation 97%. HEENT: Head and neck atraumatic. LUNGS: Clear auscultation bilaterally. HEART: Regular rate and rhythm. S1 and S2 normal. ABDOMEN: Soft, nontender, nondistended. MUSCULOSKELETAL: No C/C/E. NEUROLOGIC: The patient moves left upper and lower extremities semi-purposefully. No movement in the right arm is noted. SKIN: Moist. PSYCHIATRIC: The patient is poorly/non communicative. LABORATORY DATA: WBC 6.8, hemoglobin 13.7, platelet count 250. INR 1.01. Sodium 138, potassium 3.9, chloride 98, carbon dioxide 27, BUN 12, creatinine 0.6, glucose 246, AST 25, ALT 33. Troponin less than 0.01, albumin 4.4. ABG is 7.35/42/106. Chest x-ray, no active pulmonary disease. Head and neck CTA revealed unremarkable CT angiography of the brain and neck including at the level of the ladan and left cerebral peduncle. EKG showed normal sinus rhythm without any signs specific for myocardial ischemia. CT head revealed intraparenchymal hemorrhage, appears acute or subacute at the left cerebral peduncle, extending into the inferior ladan posteriorly with trace local edema is seen at the left thalamus internal capsule posteriorly. No significant mass effect is encountered at this time. ASSESSMENT AND PLAN: This is a 57-year-old gentleman with history of hypertension, diabetes, who presented with acute intracranial/intraparenchymal/infratentorial bleed in the area of brainstem which affected his mental status and ability to clear airways, requiring intubation for airway protection. The patient currently is sedated with propofol. Head of bed more than 30 degrees in neutral position. We will maintain systolic blood pressure within 140-160 range. We will use Cardene drip if propofol drip is not sufficient. Neurosurgical consultation requested and I spoke with Dr. Pavan Davis who saw CT head and suggested no neurosurgical intervention at this time. We will continue to target euvolemia, euglycemia, normothermia and oxygen saturation more than 90%. I will give one bolus of hypertonic saline and then reassess electrolytes and osmolality. The patient will be on Accu-Chek every 2 hours with high protocol coverage. If blood glucose trends above 200, we will start insulin drip. We will maintain normothermia. We will continue with mechanical deep venous thrombosis prophylaxis. The patient will be on gastrointestinal prophylaxis as well. We will order echocardiogram. Oral hygiene will be in order. Protective lung ventilation strategy will be utilized. Cannot generalize findings of PATCH trial on to this patient with infratentorial bleed (these patients were excluded from PATCH trial), thus will transfuse 1 bag of platelets, in light of AP therapy. No other coagulopathy was found. We will continue with normal saline maintenance fluid. We will maintain blood glucose within 145-155 range. We will keep n.p.o. for now. Admit to ICU Addendum: PMD (Dr. Grace) made a decision to transfer patient to [facility]. ccm time 40 min Vic Day MD ELIEZER
== END 2017-07-13 18:30 | disposition short-term general hospital (02) | DRG 65 ==
LOC: ED 11:04 → ERH 12:22 → ICU 14:01
PROVIDERS: ADMIT Internal Medicine Medical Oncology; ATTEND Internal Medicine Medical Oncology
PROC: 5A1935Z Respiratory Ventilation, Less than 24 Consecutive Hours (ICD-10-PCS; principal; 2017-07-13)
PROC: 0BH17EZ Insertion of Endotracheal Airway into Trachea, Via Natural or Artificial Opening (ICD-10-PCS; 2017-07-13)
PROC: 0D9670Z Drainage of Stomach with Drainage Device, Via Natural or Artificial Opening (ICD-10-PCS; 2017-07-13)
PROC: 30233R1 Transfusion of Nonautologous Platelets into Peripheral Vein, Percutaneous Approach (ICD-10-PCS; 2017-07-13)
DX: I61.3 Nontraumatic intracerebral hemorrhage in brain stem (principal); I16.1 Hypertensive emergency; R47.01 Aphasia; J98.11 Atelectasis; R29.726 NIHSS score 26; E11.65 Type 2 diabetes mellitus with hyperglycemia; R29.810 Facial weakness; R40.2432 Glasgow coma scale score 3-8, at arrival to emergency department; Z79.84 Long term (current) use of oral hypoglycemic drugs; Z79.82 Long term (current) use of aspirin